=== PATIENT | male | born 1965 | race Caucasian/White ===

== ENCOUNTER → 2018-03-19 | Outpatient (CLI) | payer OTHER ==
[~2018-03-19] MED LIST: ALBU8.5H IH; AZIT-1 PO; DOC100 PO; FLUT16SP19 ENA; FLUT1DIS28 IH; IBUP600T22 PO; KET10 PO; LEV112 PO; LEVO-3 PO; LEVO100T95 PO; LEVO75TA73 PO; LOR5/325 PO; OMEP40CA45 PO; PER PO
[2018-03-19 11:12] LABS: PLATELET COUNT, AUTOMATED 223 K/uL (150-450)
[2018-03-19 11:58] LABS: LDL CHOLESTEROL 107 mg/dl
== END ==
LOC: LAB 10:51
PROVIDERS: ATTEND Emergency Medicine
DX: Z00.00 Encounter for general adult medical examination without abnormal findings (principal); E03.9 Hypothyroidism, unspecified
CPT/HCPCS: 36415; 82040; 82247; 82310; 82374; 82435; 82465; 82565; 82947; 83036; 83718; 84075; 84132; 84155; 84295; 84443; 84450; 84460; 84478; 84520; 85025

== ENCOUNTER → 2018-06-04 | Outpatient (CLI) | payer OTHER ==
[~2018-06-04] MED LIST changes: +ALPR-429 PO; +ESC10 PO
== END ==
LOC: LAB 16:14
PROVIDERS: ATTEND Emergency Medicine
DX: E03.9 Hypothyroidism, unspecified (principal)
CPT/HCPCS: 36415; 84443